=== PATIENT | female | born 1975 | race Caucasian/White ===

== ENCOUNTER → 2022-12-10 10:38 | Outpatient (CLI) | payer OTHER, SELFPAY ==
--- NOTE | 2022-12-10 | DI.RAD.S_ITS ---
PROCEDURE: XR ANKLE LT MIN 3V INDICATIONS: Achilles tendinitis TECHNIQUE: 3 views of the ankle were acquired. COMPARISON: None. FINDINGS: Bones: No fractures or dislocations. Ankle mortise is normally aligned. No suspicious bony lesions. Soft tissues: No tibiotalar joint effusion. Achilles tendon appears normal. Plantar and posterior calcaneal enthesophytes. Normal appearance of the Kager's fat pad. IMPRESSION: Normal appearance of the Kager's fat pad and the Achilles tendon. Enthesophyte at the insertion of the Achilles tendon Dictated by: Bakari Gibson M.D. on 12/10/2022 at 12:59 Approved by: Bakari Gibson M.D. on 12/10/2022 at 13:03
== END ==
PROVIDERS: PCP Physician Assistant; Referring Provider Physician Assistant; Visit Provider Physician Assistant
DX: M76.62 Achilles tendinitis, left leg (principal)
CPT/HCPCS: 73610

== ENCOUNTER 2023-05-27 06:32 | Day surgery (SDC) | payer OTHER, SELFPAY ==
[2023-05-24 14:49] VITALS: BMI 41.3
[2023-05-27] VITALS (11 sets, daily range): BP systolic 113–133; BP diastolic 61–86; PULSE 55–122; RESP 12–51; TEMP 36.1–36.6; O2SAT 98–100; BMI 41.6
[2023-05-27] MEDS: LACTATED RINGERS 1,000 ML 42 ML IV ×2 (07:05→09:26)
[2023-05-27] MEDS: ACETAMINOPHEN 325 MG TABLET 975 MG PO (07:32)
[2023-05-27] MEDS: SCOPOLAMINE 1 PATCH TOP (07:32)
--- NOTE | 2023-05-27 07:42 | P.OP_ITS ---
Operative Date/Time/Diagnoses Date of procedure: 05/27/23 Time of procedure: 07:43 Pre-op diagnosis: Left posterior calcaneal spur, Achilles tendonitis, gastrocnemius equinus Post-op diagnosis: same Procedure & Clinicians Procedure: Left retrocalcaneal exostectomy with Achilles debridement and reanchoring Left gastrocnemius recession Same procedure as scheduled: Yes Indications: 47 yo female with ongoing pain to the posterior heel and Achilles tendonitis. Conservative measures failed to alleviate her pain and she wished to have surgical intervention at this time. We spoke of the risks, potential complications, expected outcomes. We have thoroughly reviewed and discussed her perioperative anticoagulation management with her managing anticoagulation clinic and she has been cleared for this surgery and in close contact with her managing anticoagulation providers. Surgeon: Jessica Cuellar Click Yes if Unassisted: No Anesthesia Type: General Operative Notes Closure Type: primary Specimen(s): none sent Prosthetic devices, grafts, tissues, transplants, or devices: [employer] Speed Bridge Estimated Blood Loss (mL): 30 Blood products transfused: none Tourniquet time (min): 80 Procedure in detail: After a lower extremity block was performed by Anesthesia in the preoperative holding area the patient was brought to the operating room. On the [facility] general anesthesia was rendered by the anesthesiologist. Next she was carefully positioned prone on the operative table, well padded and appropriately aligned. The left foot and ankle were prepped and draped in the usual aseptic manner. The tourniquet was inflated to the thigh. After a check of anesthesia an incision was made on the posterior calf just slightly medial to midline at the level of gastrocnemius soleal complex. The incision was deepened through subcutaneous tissue avoiding the neurovascular bundles, cauterizing bleeders as necessary. The aponeurosis of the gastrocnemius was noted. Verified to show the muscle fibers underneath of the soleus muscle belly. This was carefully protected underneath at the muscle. The aponeurosis was divided and separate sections were transected at the most distal aspect medially and laterally and then this by about 3 cm, a separate central incision proximally. These were connected and allowed the slide of the aponeurosis. This allowed there to be more flexibility at this point in the ankle dorsiflexion. The area was irrigated with copious amounts of normal sterile saline. Once lengthening was achieved 3-0 Vicryl was used to suture the arms of the release on either side. 4-0 Vicryl was used to close the deep fascia and subcutaneous tissues. Next, an incision was made on the posterior aspect of the left calcaneus at the insertion point of the Achilles to the heel. The incision was deepened through subcutaneous tissues being careful to identify and retract all vital neural and vascular structures. All bleeders were cauterized and ligated as necessary. The capsule surrounding the Achilles tendon was gently opened and reflected and the enlarged insertion point of the Achilles tendon was noted. The insertion was divided centrally and Achilles tendon was reflected laterally and medially. This exposed areas of the tendon that were significantly thickened. The bony prominent spur was resected using an osteotome. This was then gently smoothed with a rasp. The area was irrigated with copious amounts of normal sterile saline. The most lateral aspect of the tendon's insertion was the most involved and there was much less tendon available distally as it has been very invested of the bone. Following the technique of the [employer] SpeedBridge. Drill holes were placed proximally on the posterior aspect of the calcaneus medially and laterally. The lateral one had to be more proximal slightly due to the reduced Achilles length. These holes were then tapped and each anchor was inserted. Once appropriately seated the FiberWire attached to the anchor was brought up through the Achilles tendon at the appropriate location. I used a second suture included on the lateral anchor to reinforce this. Next, distally on the calcaneus another set of 2 holes were drilled in the same manner and tapped. Following the Speed Bridge protocol, under appropriate tension threading each of the 2 sides of the more proximal anchors suture, this was then placed in each of the holes. Each of these 2 anchors were then seated appropriately and was under good tension. Excess fiber tape was trimmed. A free needle was used to take some of the included FiberWire suture on each side and reinforce the attachment. Care was taken to not make this a proud knot. 3-0 Vicryl was used to reinforce and repair the remainder of the Achilles tendon and range of motion was available and strong. The area was irrigated once more with normal sterile saline and the tourniquet was deflated. A prompt hyperemic response was seen to the foot and ankle. Tendon capsule was very limited so as best as possible this was included over the tendon in repair with subcutaneous closure using Vicryl. Skin incision distal and proximal were closed with nylon and she was placed in a sterile lightly compressive dressing. She was then also placed in her postoperative boot. She was transferred to the PACU with vital signs stable and vascular status intact. Complications: none Post-operative Condition: stable Disposition: PACU Plan for aftercare: Following a period of postoperative monitoring, the patient will be discharged to home on written and oral postoperative instructions including keeping the dressing dry and intact, no weight to the surgical foot except flat for transfers, icing and elevating the foot when seated home. DVT prevention techniques have been reviewed. Detailed instructions on restart of her anticoagulation management are reviewed and she will be in close contact with her Anti-Coagulation Clinic For the 1st postoperative visit the dressing will be changed and close to the 3rd postoperative week we will likely remove the sutures.
--- NOTE | 2023-05-27 07:42 | PM.PREOP ---
Pre-operative Note Interval Note History & Physical reviewed/Exam performed by Physician: Yes Changes to H&P: No
--- NOTE | 2023-05-27 08:22 | SUR.PREOP ---
Block start time [0801] . Monitoring initiated and maintained throughout procedure. VSS, patient tolerated procedure. Oxygen and medications given per anesthesiologist instructions. Patient remained stable throughout procedure, no adverse reactions noted. Block end time [0815].
[2023-05-27] MEDS: CEFAZOLIN VIAL 3 GM in SODIUM CHLORIDE 0.9% 100 ML IV (08:35)
--- NOTE | 2023-05-27 08:56 | SUR.OPER ---
Prone on padded OR bed, head in foam head support, gel chest rolls, gel pad under knees, pillow under lower legs, toes free of pressure, arms secured on padded arm boards at <90 degrees abduction. Safety belt at thigh.
[2023-05-27] MEDS: BUPIVACAINE 0.5% (PF) 30 ML VIAL INJ (09:16)
== END 2023-05-27 11:48 | disposition home or self-care (01) ==
PROVIDERS: PCP Physician Assistant; Referring Provider Podiatrist; Visit Provider Podiatrist
PROC: (CPT 27650; principal; 2023-05-27 07:45)
PROC: (CPT 27685; 2023-05-27 07:45)
DX: M77.32 Calcaneal spur, left foot (principal); M76.62 Achilles tendinitis, left leg; M79.672 Pain in left foot; G89.18 Other acute postprocedural pain; E66.01 Morbid (severe) obesity due to excess calories; Z68.41 Body mass index [BMI] 40.0-44.9, adult; Z79.01 Long term (current) use of anticoagulants; Z86.718 Personal history of other venous thrombosis and embolism; Z86.711 Personal history of pulmonary embolism
CPT/HCPCS: 27650; 28120 ×2; 27687; 64450; 81025; 85610; C1713; J0690; J1100; J1885; J2250; J2405; J2704; J3010